=== PATIENT | male | born 1990 | race Caucasian/White ===

== ENCOUNTER 2016-06-06 06:43 | Day surgery (SDC) | payer OTHER ==
[~2016-06-06 06:43] MED LIST: Buffered Lidocaine 1% SYR 3ML* 3 ML/SYR SYRINGE INTRADERM ONE
[2016-06-06] MEDS ORDERED: Bupivacaine 0.5% SDV PF* 30 ML VIAL ONE (07:28)
[2016-06-06] MEDS ORDERED: Lidocain 1% EPI 1:100,000 * 30 ML MDV ONE (07:29)
[2016-06-06] MEDS ORDERED: Bupivacaine 0.5% W/EPI SDV* 30 ML VIAL ONE (07:29)
[2016-06-06] MEDS ORDERED: Lidocaine 1% INJ* 10 MG/ML 30 ML SDV ONE (07:30)
[2016-06-06] MEDS ORDERED: Silver Sulfadiazine 1%* 20 GM ONE (07:31)
[2016-06-06] MEDS ORDERED: Midazolam* 1 MG/ML 5 ML VIAL (5 MG) ONE (07:58)
[2016-06-06] MEDS ORDERED: fentaNYL* 50 MCG/ML 2 ML VIAL (100 MCG VIAL) ONE (07:58)
[2016-06-06] MEDS ORDERED: Propofol* 10 MG/ML 20 ML BTL IV PUSH ONE ×2 (08:36→08:37)
[2016-06-06 09:49] VITALS: BP 122/57
--- NOTE | 2016-06-07 03:39 | OP ---
DATE OF OPERATION: 06/06/16 [facility] DATE OF : 88 SURGEON: Meir Syed DPM ANESTHESIOLOGIST: Edie Pa MD ANESTHESIA: MAC, local. PRE-OP DIAGNOSIS: Right and left foot plantar warts. POST-OP DIAGNOSIS: Right and left foot plantar warts. OPERATIVE PROCEDURE: CO2 laser ablation and curettage of right and left foot plantar warts. ESTIMATED BLOOD LOSS: Less than 10 cc. IV FLUIDS: LR 1000 cc. DRAINS: None. SPECIMENS: Warts from the right and left foot. DESCRIPTION OF PROCEDURE: The patient was taken to the operating room and was placed in supine position. \A time-out was called, which the OR team agreed. The right and left feet were then blocked with 1% lidocaine with epinephrine in a 1:100,000 solution. The right foot was blocked with 1 cc and the left foot was blocked with 3 cc. The feet were prepped and draped in a sterile manner. The right and left foot was then exsanguinated with an Esmarch bandage and the cuff was then inflated to 250 mmHg. Attention was then paid to the right foot. There was a plantar wart approximately the size of 1.1 cm located just proximal to the submetatarsal 3. I proceeded to ablate the lesion with CO2 laser set at 4 schwartz in a continuous fashion. Once the lesion was ablated, I then used a combination of a #15 blade as well as a dermal curette to curettage the ablated tissue. Once it was determined that the skin line is in full view, the procedure was then deemed completed. The right foot was then placed in a dry sterile dressing and the cuff was then deflated. Attention was then paid to the left foot where there were 2 lesions, one just proximal to the submetatarsal 5 and one just distal to the styloid process of the fifth metatarsal. Again, I used a CO2 laser to ablate the skin lesion set at 4 schwartz in a continuous fashion. Once the ablation was completed, I then took a dermal curette and #15 blade to excise the ablated tissue. The sizes are 1.1 and 0.8 respectively. Once this was completed, the foot was placed in a dry sterile dressing. The cuff was then deflated. The patient tolerated the procedure well and was discharged in stable condition. I will have him come back to the office in 3 days. [id number]/[facility] #: [id number] MARY
== END 2016-06-06 09:43 | disposition home or self-care (01) ==
LOC: OREAST 06:43
PROVIDERS: ATTEND Podiatrist
DX: B07.0 Plantar wart (principal)
CPT/HCPCS: 88305; A9270-GY; J2250; J2704; J3010

== ENCOUNTER 2016-07-25 15:01 | Emergency (ER) | payer OTHER ==
[2016-07-25] MEDS ORDERED: cefTRIAXone VIAL(*) 1,000 MG VIAL IM ONE (16:48)
[2016-07-25] MEDS ORDERED: Lidocaine 1% MPF* 2 ML VIAL INJ ONE (16:52)
[2016-07-25 16:59] VITALS: BP 131/89
--- NOTE | 2016-07-25 17:01 | UC ---
Knee Pain HPI - HPI Summary HPI Summary: Spreading red area with swelling and increasing pain on R knee since last night. 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 - History of Current Complaint Chief Complaint: UCLowerExtremity Stated Complaint: KNEE PAIN,SWELLING Time Seen by Provider: 07/25/16 16:35 Hx Obtained From: Patient Onset/Duration: Gradual Onset, Lasting Hours Severity Initially: Mild Severity Currently: Moderate Character: Aching, Throbbing Aggravating Factor(s): Movement Alleviating Factor(s): Rest Associated Signs And Symptoms: Positive: Swelling, Redness. Negative: Fever, Weakness Able to Bear Weight: Yes - Allergies/Home Medications Allergies/Adverse Reactions: Allergies Allergy/AdvReac Type Severity Reaction Status Date / Time Hydrocodone Allergy Nausea And Verified 07/25/16 15:46 Vomiting PMH/Surg Hx/FS Hx/Imm Hx Endocrine History Of: Denies: Diabetes, Thyroid Disease Cardiovascular History Of: Denies: Cardiac Disorders, Hypertension Respiratory History Of: Denies: COPD, Asthma GI/ History Of: Denies: Ulcer Psychological History Of: Reports: Depression - DEPRESSION- EPISODE OF 7-8 YRS AGO - Surgical History Surgical History: Yes Surgery Procedure, Year, and Place: RIGHT ARM FX- AGE 7- "[place]". RIGHT KNEE ARTHROSCOPY, MCL REPAIR- 2012- [facility] – [place] - Family History Known Family History: Negative: Blood Disorder - Social History Occupation: Employed Full-time Alcohol Use: Weekly Alcohol Amount: 2 BEERS/NIGHT, SOCIALLY ON WEEKENDS Substance Use Type: None Smoking Status (MU): Never Smoked Tobacco Have You Smoked in the Last Year: No Review of Systems Constitutional: Negative Skin: Other - redness, swelling Eyes: Negative ENT: Negative Respiratory: Negative Cardiovascular: Negative Gastrointestinal: Negative Genitourinary: Negative Motor: Negative Neurovascular: Negative Musculoskeletal: Negative Neurological: Negative Psychological: Negative All Other Systems Reviewed And Are Negative: Yes Physical Exam Triage Information Reviewed: Yes Appearance: Well-Appearing, No Pain Distress, Well-Nourished Vital Signs: Initial Vital Signs Temp 98.3 F 07/25/16 15:41 Pulse 73 07/25/16 15:41 Pulse Ox 100 07/25/16 15:41 Vital Signs Reviewed: Yes Eye Exam: Normal Eyes: Positive: Conjunctiva Clear ENT Exam: Normal ENT: Positive: Normal ENT inspection, Hearing grossly normal, Pharynx normal, TMs normal Dental Exam: Normal Neck exam: Normal Neck: Positive: Supple, Nontender, No Lymphadenopathy Respiratory Exam: Normal Respiratory: Positive: Chest non-tender, Lungs clear, Normal breath sounds, No respiratory distress, No accessory muscle use Cardiovascular Exam: Normal Cardiovascular: Positive: RRR, No Murmur Musculoskeletal: Positive: ROM Intact, Edema @ - R anterior knee, swelling in R patellar bursa., Other: - Denies pain deep in R knee joint or posterior Neurological Exam: Normal Neurological: Positive: Alert Psychological Exam: Normal Skin Exam: Other - irreg red area on R anterior knee Knee Pain Course/Dx - Differential Dx/Diagnosis Provider Diagnoses: R knee cellulitis. R knee prepatellar bursitis Discharge - Discharge Plan Condition: Stable Disposition: HOME Prescriptions: Sulfamethox/Trimethoprim DS* [Bactrim DS 800/160 TAB*] 1 tab PO BID #10 tab Patient Education Materials: Cellulitis (ED), Knee Bursitis (ED) Referrals: Ryland Mtz MD [Primary Care Provider] - Additional Instructions: It appears that you have an infection in your knee. Though you have some swelling in the front, it does not look like you have infection in the joint at this time. Your labwork is pending. If you develop fever over 100F, severe pain in the knee, or marked increase in redness, please go to the emergency department right away. Come back here in 2 days for a recheck if you do not have total or near-total improvement.
[2016-07-26 15:32] LABS: Hematocrit 44 % (42-52); Hemoglobin 14.6 g/dl (14.0-18.0); Mean Corpuscular HGB Conc 33 g/dl (31-36); Mean Corpuscular Hemoglobin 30 pg (27-31); Mean Corpuscular Volume 91 fL (80-94); Mean Platelet Volume 10 um3 (7.4-10.4); Red Blood Count 4.84 10^6/ul (4.0-5.4); Red Cell Distribution Width 13 % (10.5-15); White Blood Count 13.7 10^3/ul (3.5-10.8)
[2016-07-26 15:34] LABS: Add Diff/Slide Review? Slide Review Added; Comments Flag Yes
== END 2016-07-25 17:12 | disposition home or self-care (01) ==
LOC: UCEAST 15:01
DX: L03.115 Cellulitis of right lower limb (principal); M70.41 Prepatellar bursitis, right knee; Y93.9 Activity, unspecified; Z88.5 Allergy status to narcotic agent
CPT/HCPCS: 36415; 85025; 86140; 96372; 99212; G0463; J0696

== ENCOUNTER 2017-07-15 15:45 | Emergency (ER) | payer OTHER ==
[2017-07-15] MEDS ORDERED: Ketorolac INJ* 60 MG/2 ML VIAL IM ONE (16:43)
--- NOTE | 2017-07-15 17:36 | RAD ---
INDICATION: Cough. COMPARISON: There are no prior studies available for comparison. TECHNIQUE: Dual-energy PA and lateral views of the chest were obtained. FINDINGS: The heart is within normal limits in size. Mediastinal and hilar contours appear within normal limits. The lungs are clear. No pleural effusion is present. IMPRESSION: NO EVIDENCE FOR ACTIVE CARDIOPULMONARY DISEASE.
--- NOTE | 2017-07-15 17:47 | ED ---
Complex/Multi-Sys Presentation - HPI Summary HPI Summary: Patient is a 26-year-old male who presents emergency Department initially complaining of low back pain that started early this morning. Patient then notes that he has had full body aches today and also noticed discomfort in the center of his chest with deep inspiration and a mild cough. He has no past medical history. Denies smoking. Pain is worse with movement. 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 He has not taken any analgesics today. Denies sick contacts. Denies illicit drug use. He denies numbness, tingling or weakness to legs. Denies bowel or bladder incontinence or retention. Symptoms are mild in severity. - History Of Current Complaint Chief Complaint: EDBackInjuryPain Time Seen by Provider: 07/15/17 16:03 Hx Obtained From: Patient - Allergies/Home Medications Allergies/Adverse Reactions: Allergies Allergy/AdvReac Type Severity Reaction Status Date / Time MS Hydrocodone [Hydrocodone] Allergy Nausea And Verified 07/25/16 15:46 Vomiting PMH/Surg Hx/FS Hx/Imm Hx Previously Healthy: Yes Endocrine/Hematology History: Denies: Hx Diabetes, Hx Thyroid Disease Cardiovascular History: Denies: Hx Hypertension Respiratory History: Denies: Hx Asthma, Hx Chronic Obstructive Pulmonary Disease (COPD) GI History: Denies: Hx Ulcer Musculoskeletal History: Reports: Other Musculoskeletal History - HX OF FX RIGHT ARM, RIGHT KNEE ARTHROSCOPY, MCL REPAIR Sensory History: Denies: Hx Contacts or Glasses, Hx Hearing Aid Opthamlomology History: Denies: Hx Contacts or Glasses Psychiatric History: Reports: Hx Depression - DEPRESSION- EPISODE OF 7-8 YRS AGO - Surgical History Surgery Procedure, Year, and Place: RIGHT ARM FX- AGE 7- "[place]". RIGHT KNEE ARTHROSCOPY, MCL REPAIR- 2012- [facility] – [place] Hx Anesthesia Reactions: No Infectious Disease History: No Infectious Disease History: Denies: Hx Hepatitis, Hx Human Immunodeficiency Virus (HIV), History Other Infectious Disease, Traveled Outside the [place] in Last 30 Days - Family History Known Family History: Negative: Blood Disorder - Social History Occupation: Employed Full-time Lives: Alone Alcohol Use: Weekly Alcohol Amount: 2 BEERS/NIGHT, SOCIALLY ON WEEKENDS Substance Use Type: Reports: None Smoking Status (MU): Never Smoked Tobacco Have You Smoked in the Last Year: No Review of Systems Positive: Fever, Chills Eyes: Negative ENT: Negative Positive: Chest Pain Positive: Shortness Of Breath, Cough Gastrointestinal: Negative Negative: Abdominal Pain, Vomiting, Diarrhea Positive: Myalgia Skin: Negative Positive: Headache All Other Systems Reviewed And Are Negative: Yes Physical Exam Triage Information Reviewed: Yes Vital Signs On Initial Exam: Initial Vitals Temp Pulse Resp BP Pulse Ox 100.2 F 86 18 156/98 99 07/15/17 15:47 07/15/17 15:47 07/15/17 15:47 07/15/17 15:47 07/15/17 15:47 Vital Signs Reviewed: Yes Appearance: Positive: Well-Appearing - Patient sitting up in bed in no acute distress. Skin: Positive: Warm, Dry - Hot to touch. Head/Face: Positive: Normal Head/Face Inspection Eyes: Positive: Normal Neck: Positive: Supple, Nontender Respiratory/Lung Sounds: Positive: Clear to Auscultation, Breath Sounds Present Cardiovascular: Positive: Normal, RRR Musculoskeletal: Positive: Other - Tenderness to the lumbar spine and pain over bilateral SI joints. 5 out of 5 strength in bilateral lower extremities in flexion and dorsiflexion and great toes. No neurosensory deficit. Negative straight leg tests bilaterally. No CVA tenderness bilaterally. Neurological: Positive: Normal, CN Intact II-III Psychiatric: Positive: Normal Diagnostics - Vital Signs Vital Signs Temp Pulse Resp BP Pulse Ox 07/15/17 15:47 100.2 F 86 18 156/98 99 - Laboratory Lab Statement: Any lab studies that have been ordered have been reviewed, and results considered in the medical decision making process. Complex Multi-Symp Course/Dx Course Of Treatment: Patient presenting to the ER with complaints of cough, chest discomfort with coughing, low back pain and myalgias. He does have a low- grade fever of 100.2F. Heart rate is 86 beats or minute. Oxygen saturation is 99% room air which is normal. WIll obtain chest x-ray, flu swab. Patient was given IM Toradol for discomfort and fever. Negative flu. Chest xray negative for acute findings per myself and radiology. On re-exam pt. is feeling mildly better after toradol. Case was discussed with Dr. Guillermo. Concerned with midline back pain and fever. Will check labs and urine. DDX: viral syndrome, UTI , pyelo, epidural abscess. Pt. will be signed out to Sharmin Jones PA-C for labs results and appropriate treatment and disposition. - Diagnoses Provider Diagnoses: Back pain, Fever Discharge - Sign-Out/Discharge Documenting (check all that apply): Sign-Out Patient Signing out patient TO: Sharmin Jones - Discharge Plan Referrals: Ryland Mtz MD [Primary Care Provider] -
--- NOTE | 2017-07-15 18:50 | PN ---
Progress Note - Progress Note Date of Service: 07/15/17 Note: 26 male patient signed out by Marvin MEHTA pending lab results at shift change. Patient was having low back pain, fever, cough, chest pain with inspiration, bodyaches. Lab results were obtained results showing elevated white blood cell count at 20.7 with left shift. Patient was febrile. Urinalysis also obtained and negative. Influenza was already obtained and negative. Due to patient's low back pain with midline tenderness, lab results, normal urine, an MRI of the thoracic or lumbar spine was obtained. IMPRESSION:1. NO EVIDENCE FOR DISCITIS OR OSTEOMYELITIS. 2. MILD DEGENERATIVE DISC DISEASE. 3. MULTIPLE BILATERAL RENAL CYSTS. mild badging disc lumbar spine Blood cultures were also obtained due to patient's white blood cell count elevation and symptoms, pending results. Urine will be cultured as well. 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 MRIs were both negative for any epidural abscess of concern. Due to patient's white count symptoms CT chest was obtained. Chest x-ray was read as negative however suspicion for pneumonia. CT showed left lobe pneumonia with some on the right as well. To white count and patient's symptoms with findings on CT we'll treat with Levaquin [address] Alarcon also read CT. radiologist impression: There are platelike atelectacic changes at the lung bases but no pulmonary infiltrates are identified. No pleural effusion. No pericardial effusion. No pneumothorax or pneumomediastinum. A few shotty mediastinal lymph nodes. Osseous structures are intact. Patient agree and understand plan. Given Levaquin 7 days. Decongestants over- the-counter, saltwater gargles and ibuprofen/Tylenol for fever and discomfort. Aware worsening signs or symptoms watch out for. Follow-up with PCP for recheck within 2 days. Diagnosis: pneumonia Discharge Condition stable Disposition home
[2017-07-15 18:58] LABS: ABS Basophils 0 10^3/ul (0-0.2); ABS Eosinophils 0 10^3/ul (0-0.6); ABS Lymphocytes 1.7 10^3/ul (1.0-4.8); ABS Monocytes 0.8 10^3/ul (0-0.8); ABS Neutrophils 18.1 10^3/ul (1.5-7.7); ABS Nucleated RBC 0 10^3/ul; Eosinophil % 0.2 % (0-6); Hematocrit 42 % (42-52); Hemoglobin 14.1 g/dl (14.0-18.0); Lymphocyte % 8.3 % (25-47); Mean Corpuscular HGB Conc 34 g/dl (31-36); Mean Corpuscular Hemoglobin 30 pg (27-31); Mean Corpuscular Volume 91 fL (80-94); Mean Platelet Volume 8.4 um3 (7.4-10.4); Nucleated Red Blood Cells % 0; Platelet Count 300 10^3/ul (150-450); Red Blood Count 4.63 10^6/ul (4.0-5.4); Red Cell Distribution Width 13 % (10.5-15); White Blood Count 20.7 10^3/ul (3.5-10.8)
[2017-07-15 19:16] LABS: EGFR Non-African American 99.9 (>60)
[2017-07-15 20:03] LABS: Urine Appearance Clear; Urine Blood Negative (Negative); Urine Color Straw; Urine Ketones Trace (Negative); Urine Protein Negative (Negative); Urine Specific Gravity 1.008 (1.010-1.030); Urine Urobilinogen Negative (Negative)
[2017-07-15] MEDS ORDERED: Gadoteridol* (CONTRAST) 279.3 MG/ML 10 ML IV ONE (21:48)
--- NOTE | 2017-07-15 22:10 | RAD ---
INDICATION: Neck pain fever evaluate for infection, abscess. COMPARISON: There are no prior studies available for comparison. TECHNIQUE: Axial and sagittal T1 and T2-weighted images of the dorsal spine were obtained. In addition, axial and sagittal T1-weighted images were obtained following intravenous injection of 16 ml of ProHance nonionic contrast enhancement. FINDINGS: The vertebra are in normal alignment and signal intensity. No bone marrow edema or vertebral endplate erosive changes are seen. No disc edema is present. No paravertebral soft tissue swelling is present. No abnormal enhancement is seen. The spinal cord is normal in shape and signal intensity. At the T7-T8 level there is a mild central disc protrusion. No significant spinal canal or neural foraminal narrowing is seen. No other significant disc abnormalities are seen. The spinal canal appears patent at all levels. Neural foramen appear patent bilaterally at all levels. There are multiple bilateral renal cysts. IMPRESSION: 1. NO EVIDENCE FOR DISCITIS OR OSTEOMYELITIS. 2. MILD DEGENERATIVE DISC DISEASE. 3. MULTIPLE BILATERAL RENAL CYSTS.
--- NOTE | 2017-07-15 22:24 | RAD ---
INDICATION: Fever and back pain evaluate for abscess. COMPARISON: There are no prior studies available for comparison. TECHNIQUE: Axial and sagittal T1 and T2 and coronal T2-weighted images of the lumbar spine were obtained. In addition axial and sagittal T1-weighted images were obtained following intravenous injection of 16 ml of ProHance nonionic contrast. FINDINGS: The vertebra are in normal alignment. No bone marrow edema or vertebral endplate erosive changes are seen. No fracture is noted. No abnormal enhancement is seen. At the L3-L4 level there is a very mild broad-based disc bulge and mild hypertrophic changes within the facet joints. No significant spinal canal or neural foraminal narrowing is seen. At the L4-L5 level there is a minimal broad-based disc bulge and mild hypertrophic changes within the facet joints. No significant spinal canal or neural foraminal narrowing is seen. At the L5-S1 level there is a mild broad-based disc bulge. There are mild hypertrophic changes within the facet joints. No spinal canal or neural foraminal narrowing is seen. There are multiple bilateral renal cysts which are partially visualized on this study. IMPRESSION: 1. NO EVIDENCE FOR DISCITIS OR OSTEOMYELITIS. 2. MILD LUMBAR SPONDYLOSIS. 3. MULTIPLE BILATERAL RENAL CYSTS.
[2017-07-15] MEDS ORDERED: Acetaminophen TAB* 325 MG PO ONE (22:39)
[2017-07-16] MEDS ORDERED: Levofloxacin TAB* 250 MG PO ONE (00:02)
[2017-07-16 01:25] VITALS: BP 131/70
--- NOTE | 2017-07-16 09:14 | RAD ---
Indication: Evaluate for pneumonia. CT of the chest performed without IV contrast. Inferior thyroid lobes are unremarkable. There are small pretracheal lymph nodes noted measuring up to 8 mm. Precarinal lymph nodes measure up to 7 mm. No hilar adenopathy is noted. The heart demonstrates no pericardial effusion. The trachea and major bronchi appear patent. Lung bethea demonstrate some atelectasis in the lung bases bilaterally, worse on the left than on the right. No pleural fluid is identified. The bony structures are grossly unremarkable. IMPRESSION: Bibasilar atelectasis in the lung bases. No definite pneumonia is noted. Small mediastinal lymph nodes of uncertain clinical significance.
== END 2017-07-16 01:22 | disposition home or self-care (01) ==
LOC: ED 15:45
DX: M54.5 Low back pain (principal); R50.9 Fever, unspecified; R51 Headache; R07.9 Chest pain, unspecified; R06.02 Shortness of breath; R05 Cough; J18.9 Pneumonia, unspecified organism; M51.34 Other intervertebral disc degeneration, thoracic region; M47.896 Other spondylosis, lumbar region
CPT/HCPCS: 36415; 71046; 71250; 72157; 72158; 80053; 81003; 85025; 86141; 87040; 87502; 96372; 99282; A9270-GY; A9579; J1885

== ENCOUNTER 2018-09-27 15:40 | Emergency (ER) | payer OTHER ==
[2018-09-27] MEDS ORDERED: Rabies VIRUS VACCINE (Imovax)* 2.5 UNIT/ML 1 ML IM ONE (15:43)
[2018-09-27] MEDS ORDERED: Tetan/Diph/Pertus SYR(Tdap)* 0.5 ML SYR(BOOSTRIX) use SYR IM ONE (15:43)
--- NOTE | 2018-09-27 15:43 | UC ---
Bite Injury/Animal HPI - HPI Summary HPI Summary: 28 yo male presents with bat exposure. He tells me that 1 week ago he noticed a bat hanging from his curtain at home and removed it with a papertowel. Thinks the bat scratched him once or twice, but does not think he was bitten. Pt states his last tetanus was within the last 5 years. He called the health department and they recommended he undergo rabies vaccination. He has no symptoms at this time. 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 - History of Current Complaint Stated Complaint: BAT EXPOSURE Time Seen by Provider: 09/27/18 15:42 Hx Obtained From: Patient Severity Currently: None Character: Puncture - Allergies/Home Medications Allergies/Adverse Reactions: Allergies Allergy/AdvReac Type Severity Reaction Status Date / Time hydrocodone Allergy Nausea And Verified 09/27/18 15:54 Vomiting Home Medications: Home Medications NK [No Home Medications Reported] 09/27/18 [History Confirmed 09/27/18] PMH/Surg Hx/FS Hx/Imm Hx - Additional Past Medical History Additional PMH: none Psychological History: Anxiety - Surgical History Surgical History: Yes Surgery Procedure, Year, and Place: RIGHT ARM FX- AGE 7- "[place]". RIGHT KNEE ARTHROSCOPY, MCL REPAIR- 2012- [facility] [place] - Family History Known Family History: Positive: None Negative: Blood Disorder - Social History Lives: With Family Alcohol Use: Weekly Alcohol Amount: 2 BEERS/NIGHT, SOCIALLY ON WEEKENDS Substance Use Type: None Smoking Status (MU): Never Smoked Tobacco Have You Smoked in the Last Year: No Review of Systems All Other Systems Reviewed And Are Negative: Yes Constitutional: Positive: Other - Bat exposure Skin: Positive: Negative Respiratory: Positive: Negative Cardiovascular: Positive: Negative Neurovascular: Positive: Negative Neurological: Positive: Negative Psychological: Positive: Negative Physical Exam - Summary Physical Exam Summary: GENERAL: NAD. WDWN. No pain distress. SKIN: RIGHT HAND: index finger dorsal aspect with 2mm puncture wound healed. ring finger dorsal aspect with 2mm puncture wound healed. NECK: Supple. Nontender. No lymphadenopathy. CHEST: No accessory muscle use. Breathing comfortably and in no distress. CV: Pulses intact. Cap refill <2seconds NEURO: Alert. PSYCH: Age appropriate behavior. Triage Information Reviewed: Yes Vital Signs: Vital Signs: Temp Pulse Resp BP Pulse Ox 99.0 F 64 18 148/95 98 09/27/18 15:55 09/27/18 15:55 09/27/18 15:55 09/27/18 15:55 09/27/18 15:55 Vital Signs Reviewed: Yes Bite Injury Course/Dx - Course Course Of Treatment: Rabies vaccination given. RIG given according to guidelines. No need for antibiotics at this time. Advised to f/u with the health department for further treatment. - Differential Dx/Diagnosis Provider Diagnosis: Contact with and suspected exposure to rabies Discharge - Sign-Out/Discharge Documenting (check all that apply): Patient Departure All imaging exams completed and their final reports reviewed: No Studies - Discharge Plan Condition: Stable Disposition: HOME Patient Education Materials: Rabies Vaccine (By injection), Rabies Immune Globulin (By injection), Rabies (ED) Referrals: Ryland Mtz MD [Primary Care Provider] - Additional Instructions: If you develop a fever, shortness of breath, chest pain, new or worsening symptoms - please call your PCP or go to the ED immediately. Your blood pressure was high at todays visit. Please see your primary provider within 4 weeks for recheck and re-evaluation. - Billing Disposition and Condition Condition: STABLE Disposition: Home
[2018-09-27 15:57] VITALS: BP 148/95
[2018-09-27] MEDS ORDERED: Rabies Immune Globulin/PF 1ML* 1 ML/300 UNITS VIAL IM ONE (15:58)
== END 2018-09-27 16:35 | disposition home or self-care (01) ==
LOC: UCEAST 15:40
DX: Z20.3 Contact with and (suspected) exposure to rabies (principal); Z88.5 Allergy status to narcotic agent
CPT/HCPCS: 90375; 90471; 96372; 99211; G0463

== ENCOUNTER 2018-09-30 07:02 | Emergency (ER) | payer OTHER ==
[2018-09-30 07:08] VITALS: BP 134/98
[2018-09-30] MEDS ORDERED: Rabies VIRUS VACCINE (Imovax)* 2.5 UNIT/ML 1 ML IM ONE (07:13)
--- NOTE | 2018-09-30 07:14 | UC ---
Bite Injury/Animal HPI - HPI Summary HPI Summary: 28 yo gentleman presents as advise by Health Dept for Rabies vaccine #2. Received RIG and Rabies vaccine #1 on 09/27/18. Notes from 09/27 visit not yet complete, pt denie any problems with vaccine / rig effects. No fever / chills. No GI issues. No sob / cp / palpitations. No rash. Saw a bat, and touched it a couple days ago. Doesn't recall bite perse, but may have had a scratch. Tet utd. Fam hx noncont - History of Current Complaint Chief Complaint: UCGeneralIllness Stated Complaint: RABIES POST EXPOSURE Time Seen by Provider: 09/30/18 07:12 Hx Obtained From: Patient Pain Intensity: 0 - Allergies/Home Medications Allergies/Adverse Reactions: Allergies Allergy/AdvReac Type Severity Reaction Status Date / Time hydrocodone Allergy Nausea And Verified 09/30/18 07:09 Vomiting PMH/Surg Hx/FS Hx/Imm Hx Previously Healthy: Yes - Surgical History Surgical History: Yes Surgery Procedure, Year, and Place: RIGHT ARM FX- AGE 7- "[place]". RIGHT KNEE ARTHROSCOPY, MCL REPAIR- 2012- [facility] – [place] - Family History Known Family History: Positive: None Negative: Blood Disorder - Social History Alcohol Use: Weekly Alcohol Amount: 2 BEERS/NIGHT, SOCIALLY ON WEEKENDS Substance Use Type: None Smoking Status (MU): Never Smoked Tobacco Have You Smoked in the Last Year: No - Immunization History Most Recent Tetanus Shot: within 5 years Review of Systems All Other Systems Reviewed And Are Negative: Yes Constitutional: Positive: Negative Skin: Positive: Negative Eyes: Positive: Negative ENT: Positive: Negative Respiratory: Positive: Negative Cardiovascular: Positive: Negative Gastrointestinal: Positive: Negative Genitourinary: Positive: Negative Motor: Positive: Negative Neurovascular: Positive: Negative Musculoskeletal: Positive: Negative Neurological: Positive: Negative Psychological: Positive: Negative Is Patient Immunocompromised?: No Physical Exam Triage Information Reviewed: Yes Appearance: Well-Appearing, Well-Nourished Vital Signs: Initial Vital Signs Temp 98 F 09/30/18 07:06 Pulse 71 09/30/18 07:06 Resp 17 09/30/18 07:06 BP 134/98 09/30/18 07:06 Pulse Ox 99 09/30/18 07:06 Vital Signs Reviewed: Yes Eye Exam: Normal ENT Exam: Normal Neck exam: Normal Neck: Positive: Supple Respiratory Exam: Normal Cardiovascular Exam: Normal Abdominal Exam: Normal Musculoskeletal Exam: Normal Neurological Exam: Normal Psychological Exam: Normal Skin Exam: Normal - no infection / cellulitis Bite Injury Course/Dx - Course Course Of Treatment: Rabies vaccine x 1. Questions as posed answered to the best of my ability F/u per Health Dept fu PCP, per routine. Note - in [email or web address], there is no listing for "possible rabies exposure", as such , closest pertinent dx is as below "Rabies exposure." - Differential Dx/Diagnosis Provider Diagnosis: Rabies contact Discharge - Sign-Out/Discharge Documenting (check all that apply): Patient Departure All imaging exams completed and their final reports reviewed: No Studies - Discharge Plan Condition: Stable Disposition: HOME Patient Education Materials: Rabies Vaccine (By injection) Referrals: Ryland Mtz MD [Primary Care Provider] - Additional Instructions: Follow up per the Health Department for the remainder of the series. Go to the Emergency Department for any worse or new problems. - Billing Disposition and Condition Condition: STABLE Disposition: Home
== END 2018-09-30 07:30 | disposition home or self-care (01) ==
LOC: UCEAST 07:02
DX: Z20.3 Contact with and (suspected) exposure to rabies (principal); Z29.14 Encounter for prophylactic rabies immune globulin
CPT/HCPCS: 90471; 99211; G0463

== ENCOUNTER 2019-05-14 16:45 | Emergency (ER) | payer OTHER ==
[2019-05-14] MEDS ORDERED: NS 0.9% 1000 ML** 1,000 ML IV ONE (16:51)
[2019-05-14] MEDS ORDERED: Ondansetron INJ* 2 MG/ML VIAL IV ONE (16:51)
[2019-05-14] MEDS ORDERED: LORazepam TAB(*) 1 MG PO ONE (17:00)
--- NOTE | 2019-05-14 17:08 | ED ---
Psychiatric Complaint - HPI Summary HPI Summary: This patient is a 28 year old [place] [facility] [place] with a chief complaint of anxiety since this morning 05/14/19. Pt states he drank alcohol last night which caused a slight hangover this morning. He states earlier he became anxious, was hyperventilating, and his hands and arms started to become numb, he experienced tunnel vision, diaphoresis, nausea, and lightheadedness. Currently reports anxiety, for which he took 0.5mg Klonopin this morning without alleviation. Denies CP, SOB. No SI HI. - History Of Current Complaint Chief Complaint: EDNauseaVomitDiarrh Time Seen by Provider: 05/14/19 16:50 Hx Obtained From: Patient Onset/Duration: Gradual Onset, Lasting Hours, Still Present Timing: Constant Severity Initially: Moderate Severity Currently: Moderate Character: Anxious Aggravating Factor(s): Nothing Alleviating Factor(s): Nothing Associated Signs And Symptoms: Positive: Negative - Allergies/Home Medications Allergies/Adverse Reactions: Allergies Allergy/AdvReac Type Severity Reaction Status Date / Time hydrocodone Allergy Nausea And Verified 05/14/19 16:48 Vomiting PMH/Surg Hx/FS Hx/Imm Hx Previously Healthy: Yes Endocrine/Hematology History: Denies: Hx Diabetes, Hx Thyroid Disease Cardiovascular History: Denies: Hx Hypertension, Hx Pacemaker/ICD Respiratory History: Denies: Hx Asthma, Hx Chronic Obstructive Pulmonary Disease (COPD) GI History: Denies: Hx Ulcer Musculoskeletal History: Reports: Other Musculoskeletal History - HX OF FX RIGHT ARM, RIGHT KNEE ARTHROSCOPY, MCL REPAIR Sensory History: Denies: Hx Contacts or Glasses, Hx Hearing Aid Opthamlomology History: Denies: Hx Contacts or Glasses Psychiatric History: Reports: Hx Anxiety, Hx Depression - DEPRESSION- EPISODE OF 7-8 YRS AGO Denies: Hx Panic Disorder - Surgical History Surgery Procedure, Year, and Place: RIGHT ARM FX- AGE 7- "[facility]". RIGHT KNEE ARTHROSCOPY, MCL REPA[place] [facility] [place] Anesthesia Reactions: No Infectious Disease History: No Infectious Disease History: Denies: Hx Hepatitis, Hx Human Immunodeficiency Virus (HIV), History Other Infectious Disease, Traveled Outside the [place] in Last 30 Days - Family History Known Family History: Negative: Blood Disorder - Social History Alcohol Use: Weekly Alcohol Amount: 2 BEERS/NIGHT, SOCIALLY ON WEEKENDS Hx Substance Use: No Substance Use Type: Reports: None Hx Tobacco Use: No Smoking Status (MU): Never Smoked Tobacco Have You Smoked in the Last Year: No Review of Systems Positive: Skin Diaphoresis Positive: Other - tunnel vision Positive: Nausea Neurological/Mental Status: Other - lightheadedness Positive: Numbness Positive: Anxious All Other Systems Reviewed And Are Negative: Yes Physical Exam - Summary Physical Exam Summary: Constitutional: Well-developed, Well-nourished, Alert. (-) Distressed Skin: Warm, Dry HENT: Normocephalic; Atraumatic Eyes: Conjunctiva normal Neck: Musculoskeletal ROM normal neck. (-) JVD, (-) Stridor, (-) Nuchal rigidity Cardio: Rhythm regular, rate normal, Heart sounds normal; Intact distal pulses; Radial pulses are 2+ and symmetric. (-) Murmur Pulmonary/Chest wall: Effort normal. (-) Respiratory distress, (-) Wheezes, (-) Rales Abd: Soft, (-) tenderness, (-) Distension, (-) Guarding, (-) Rebound Musculoskeletal: (-) Edema Lymph: (-) Cervical adenopathy Neuro: Alert, Oriented x3 Psych: anxious Triage Information Reviewed: Yes Vital Signs On Initial Exam: Initial Vitals Temp Pulse Resp BP Pulse Ox 96.5 F 82 19 160/106 100 05/14/19 16:46 05/14/19 16:46 05/14/19 16:46 05/14/19 16:46 05/14/19 16:46 Vital Signs Reviewed: Yes Procedures - Sedation Patient Received Moderate/Deep Sedation with Procedure: No Diagnostics - Vital Signs Vital Signs Temp Pulse Resp BP Pulse Ox 05/14/19 16:46 96.5 F 82 19 160/106 100 - Laboratory Result Diagrams: 05/14/19 17:02 05/14/19 17:02 Lab Statement: Any lab studies that have been ordered have been reviewed, and results considered in the medical decision making process. - EKG 1728 Cardiac Rate: NL - 73 BPM EKG Rhythm: Sinus Rhythm ST Segment: Other Ectopy: None Summary of EKG Findings: An EKG taken at 1728 reveals sinus rhythm at 73 BPM and T-wave inversions in V1. ED physician has reviewed and interpreted this EKG. Course/Dx - Course Course Of Treatment: 28 y/o male p/w anxiety, lightheadedness. - VSS NAD, appears anxious. Given 1 mg ativan PO for anxiety. Labs w hypokalemia, repleted. EKG sinus. Got IVF and zofran, feeling much better. - Differential Dx/Clinical Impression Provider Diagnosis: Anxiety, Hypokalemia Discharge ED - Sign-Out/Discharge Documenting (check all that apply): Patient Departure - Discharge Plan Condition: Stable Disposition: HOME Patient Education Materials: Anxiety (ED) Referrals: Ryland Mtz MD [Primary Care Provider] - 3 Days Additional Instructions: You were seen in the emergency department for anxiety. Your labs showed a mildly low potassium which we gave you in the ER. Please do not drink and drive. Please follow up with psychiatrist, return to ER thoughts of wanting to hurt yourself or anybody else. Please follow up with your primary care doctor in next 2-3 days and return to emergency department for worsening or concerning symptoms. It was a pleasure taking care of you today. - Billing Disposition and Condition Condition: STABLE Disposition: Home - Attestation Statements Document Initiated by Cristian: Yes Documenting Scribe: Ginna Larry Provider For Whom Cristian is Documenting (Include Credential): Dr. Karolina Lynch MD Scribe Attestation: I, Ginna Larry, scribed for Dr. Karolina Lynch MD on 05/14/19 at 2049. Scribe Documentation Reviewed: Yes Provider Attestation: The documentation as recorded by the Ginna benavidez accurately reflects the service I personally performed and the decisions made by me, Dr. Karolina Lynch MD Status of Scribe Document: Viewed
[2019-05-14 17:09] LABS: ABS Basophils 0.1 10^3/ul (0-0.2); ABS Lymphocytes 1.2 10^3/ul (1.0-4.8); ABS Monocytes 0.7 10^3/ul (0-0.8); ABS Neutrophils 6.1 10^3/ul (1.5-7.7); Eosinophil % 0.6 %; Hematocrit 44 % (42-52); Hemoglobin 15.4 g/dL (14.0-18.0); Lymphocyte % 14.9 %; Mean Corpuscular HGB Conc 35 g/dL (31-36); Mean Corpuscular Hemoglobin 32 pg (27-31); Mean Corpuscular Volume 91 fL (80-94); Mean Platelet Volume 7.8 fL (7.4-10.4); Platelet Count 319 10^3/uL (150-450); Red Blood Count 4.78 10^6 /uL (4.18-5.48); Red Cell Distribution Width 13 % (10-15); White Blood Count 8.2 10^3/uL (3.5-10.8)
[2019-05-14 17:20] LABS: Albumin 4.7 g/dL (3.2-5.2); Calcium 9.2 mg/dL (8.6-10.3); Potassium 3.1 mmol/L (3.5-5.0); Total Bilirubin 0.3 mg/dL (0.2-1.0)
[2019-05-14 17:26] LABS: Albumin/Globulin Ratio 1.5 (1-3); BUN/Creatinine Ratio 11.4 (8-20); EGFR African American 123.9 (>60); EGFR Non-African American 102.4 (>60); Globulin 3.1 g/dL (2-4); Total Protein 7.8 g/dL (6.4-8.9)
[2019-05-14] MEDS ORDERED: Potassium EFFERVESCENT TAB* 25 MEQ TAB.EFF PO ONE (17:34)
[2019-05-14] MEDS ORDERED: Potassium Chlor TAB* 20 MEQ TAB.ER PO ONE (18:00)
[2019-05-14 18:23] VITALS: BP 146/98
== END 2019-05-14 18:22 | disposition home or self-care (01) ==
LOC: ED 16:45
DX: F41.9 Anxiety disorder, unspecified (principal); E87.6 Hypokalemia; Z88.5 Allergy status to narcotic agent
CPT/HCPCS: 36415; 80053; 80320; 85025; 93005; 96361; 96374; 99282; A9270-GY; G0480; J2405

== ENCOUNTER 2019-05-16 11:39 | Emergency (ER) | payer OTHER ==
[2019-05-16] MEDS ORDERED: Ondansetron ODT TAB* 4 MG PO ONE (12:53)
--- NOTE | 2019-05-16 13:09 | ED ---
GI/ HPI - HPI Summary HPI Summary: 28 year old M presenting to [facility] alone complains of nausea, vomiting, and loose diarrhea since this morning 05/16/2019. He also reports hand and leg numbness possibly due to anxiety. Patient reports coming to [facility] 05/14/2019 for anxiety/panic attack. He denies fever and sore throat. Patient states his family was sick from a stomach bug over the weekend. The patient rates the pain 0/10 in severity. Symptoms aggravated by nothing. Symptoms alleviated by nothing. - History of Current Complaint Chief Complaint: EDNauseaVomitDiarrh Time Seen by Provider: 05/16/19 12:33 Stated Complaint: FLU SYMPTOMS PER PT Hx Obtained From: Patient Onset/Duration: Started Hours Ago, Still Present Pain Intensity: 0 Associated Signs and Symptoms: Positive: Nausea, Vomiting, Diarrhea - loose, Other: - negative - sore throat. Negative: Fever Aggravating Factor(s): Nothing Alleviating Factor(s): Nothing - Allergy/Home Medications Allergies/Adverse Reactions: Allergies Allergy/AdvReac Type Severity Reaction Status Date / Time hydrocodone Allergy Nausea And Verified 05/16/19 11:45 Vomiting PMH/Surg Hx/FS Hx/Imm Hx Endocrine/Hematology History: Denies: Hx Diabetes, Hx Thyroid Disease Cardiovascular History: Denies: Hx Hypertension, Hx Pacemaker/ICD Respiratory History: Denies: Hx Asthma, Hx Chronic Obstructive Pulmonary Disease (COPD) GI History: Denies: Hx Ulcer Musculoskeletal History: Reports: Other Musculoskeletal History - HX OF FX RIGHT ARM, RIGHT KNEE ARTHROSCOPY, MCL REPAIR Sensory History: Denies: Hx Contacts or Glasses, Hx Hearing Aid Opthamlomology History: Denies: Hx Contacts or Glasses Psychiatric History: Reports: Hx Anxiety, Hx Depression - DEPRESSION- EPISODE OF 7-8 YRS AGO Denies: Hx Panic Disorder - Surgical History Surgery Procedure, Year, and Place: RIGHT ARM FX- AGE 7- "[facility]". RIGHT KNEE ARTHROSCOPY, MCL REPAIR- [place]- [facility] [place] Hx Anesthesia Reactions: No Infectious Disease History: No Infectious Disease History: Denies: Hx Hepatitis, Hx Human Immunodeficiency Virus (HIV), History Other Infectious Disease, Traveled Outside the [place] in Last 30 Days - Family History Known Family History: Negative: Blood Disorder - Social History Alcohol Use: Weekly Alcohol Amount: 2 BEERS/NIGHT, SOCIALLY ON WEEKENDS Hx Substance Use: No Substance Use Type: Reports: None Hx Tobacco Use: No Smoking Status (MU): Never Smoked Tobacco Have You Smoked in the Last Year: No Review of Systems Negative: Fever Negative: Sore Throat Positive: Vomiting, Diarrhea - loose, Nausea Positive: Other - arm and leg numbness possibly due to anxiety All Other Systems Reviewed And Are Negative: Yes Physical Exam - Summary Physical Exam Summary: Appearance: The patient is well-nourished in no acute distress and in no acute pain. Skin: The skin is warm and dry, and skin color reflects adequate perfusion. HEENT: The head is normocephalic and atraumatic. The pupils are equal and reactive. The conjunctivae are clear and without drainage. Nares are patent and without drainage. Mouth reveals moist mucous membranes, and the throat is without erythema and exudate. The external ears are intact. The ear canals are patent and without drainage. The tympanic membranes are intact. Neck: The neck is supple with full range of motion and non-tender. There are no carotid bruits. There is no neck vein distension. Respiratory: Chest is non-tender. Lungs are clear to auscultation and breath sounds are symmetrical and equal. Cardiovascular: Heart is regular rate and rhythm. There is no murmur or rub auscultated. There is no peripheral edema and pulses are symmetrical and equal. Abdomen: The abdomen is soft and non-tender. There are normal bowel sounds heard in all four quadrants and there is no organomegaly palpated. Musculoskeletal: There is no back tenderness noted. Extremities are non-tender with full range of motion. There is good capillary refill. There is no peripheral edema or calf tenderness elicited. Neurological: Patient is alert and oriented to person, place and time. The patient has symmetrical motor strength in all four extremities. Cranial nerves are grossly intact. Deep tendon reflexes are symmetrical and equal in all four extremities. Psychiatric: The patient has an appropriate affect and does not exhibit any anxiety or depression. Triage Information Reviewed: Yes Vital Signs On Initial Exam: Initial Vitals Temp Pulse Resp BP Pulse Ox 97.1 F 105 19 152/122 99 05/16/19 11:42 05/16/19 11:42 05/16/19 11:42 05/16/19 11:42 05/16/19 11:42 Vital Signs Reviewed: Yes Procedures - Sedation Patient Received Moderate/Deep Sedation with Procedure: No Diagnostics - Vital Signs Vital Signs Temp Pulse Resp BP Pulse Ox 05/16/19 11:42 97.1 F 105 19 152/122 99 - Laboratory Lab Statement: Any lab studies that have been ordered have been reviewed, and results considered in the medical decision making process. GIGU Course/Dx - Course Course Of Treatment: Mr. Huitron was given by mouth Zofran here for his nausea. His symptoms are mild and I do not think he needs to have any more invasive treatment. I recommended Zofran at home for continued nausea. - Diagnoses Provider Diagnoses: Gastroenteritis Discharge ED - Sign-Out/Discharge Documenting (check all that apply): Patient Departure - discharge - Discharge Plan Condition: Stable Disposition: HOME Prescriptions: Ondansetron ODT TAB* [Zofran Odt TAB*] 4 mg PO Q6H PRN #20 tab.odt PRN Reason: Nausea/Vomiting Patient Education Materials: Gastroenteritis (ED) Referrals: Ryland Mtz MD [Primary Care Provider] - 3 Days Additional Instructions: Please follow up with your primary care provider in 2-3 days. Return to the Emergency Department with new or worsening symptoms. - Billing Disposition and Condition Condition: STABLE Disposition: Home - Attestation Statements Document Initiated by Scribe: Yes Documenting Scribe: Albert Cabrales Provider For Whom Cristian is Documenting (Include Credential): Jony Guillermo MD Scribe Attestation: IAlbert, scribed for Jony Guillermo MD on 05/16/19 at 1656. Scribe Documentation Reviewed: Yes Provider Attestation: The documentation as recorded by the Albert benavidez accurately reflects the service I personally performed and the decisions made by me, Jony Guillermo MD Status of Scribe Document: Viewed
[2019-05-16] MEDS ORDERED: clonazePAM TAB(*) 1 MG PO ONE (14:16)
[2019-05-16 14:25] VITALS: BP 128/77
== END 2019-05-16 14:25 | disposition home or self-care (01) ==
LOC: ED 11:39
DX: K52.9 Noninfective gastroenteritis and colitis, unspecified (principal); R20.0 Anesthesia of skin; F41.9 Anxiety disorder, unspecified; Z88.5 Allergy status to narcotic agent
CPT/HCPCS: 99282; A9270-GY

== ENCOUNTER 2019-06-09 13:25 | Emergency (ER) | payer OTHER ==
--- OUTSIDE RECORDS SUMMARY | 2019-06-09 13:36 | XMS REPORT | Continuity of Care Document ---
:1990 External Reference #:[id number] Author Name TYSON Collins Address [address] [place] [address] Care Team Providers Name Role Phone Kira Lopez M.D. 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 Onset: 05/30/2016 Social History Type Date Description Comments Sex Unknown Tobacco Use Start: Unknown Nonsmoker ETOH Use beer on weekends 3 -6 beers Fri/sat Recreational Drug Use Denies Drug Use Tobacco Use Start: Unknown Nonsmoker Smoking Status Reviewed: 05/23/19 Nonsmoker Allergies, Adverse Reactions, Alerts Active Allergies Reaction Severity Comments Date Hydrocodone feels off 10/12/2018 Inactive Allergies NKDA 08/15/2011 Medications Active Medications SIG Qnty Indications Ordering Provider Date Lexapro Start 2 tablet 30tabs F41.9 Kira Lopez, 05/23/2019 10mg Tablets at bedtime. M.D. Adderall take one by 30tabs F90.0 Kira Lopez, 10/12/2018 10mg Tablets mouth daily prn M.D. Clonazepam 1 by mouth once 30tabs F41.9 Alejandra Mcgraw 01/30/2016 0.5mg Tablets a day as needed SIA Murray for anxiety Escitalopram Oxalate 1 by mouth every F41.9 Unknown 10mg day Tablets Immunizations CPT Code Status Date Vaccine Lot # [id number] Given 05/03/2019 Tdap Tetanus, W Pertussis [id number] Vital Signs Date Vital Result Comment 05/23/2019 3:42pm BP Systolic 144 mmHg BP Diastolic 88 mmHg Heart Rate 70 /min Body Temperature 98.4 F Height 70.5 inches 5'10.50" Weight 186.00 lb BMI (Body Mass Index) 26.3 kg/m2 05/03/2019 3:25pm BP Systolic 124 mmHg BP Diastolic 84 mmHg Heart Rate 80 /min Body Temperature 98.4 F Results Test Acquired Date Facility Test Result H/L Range Note CBC Auto Diff 05/14/2019 [facility] [place] White Blood 8.2 10^3/uL Normal 3.5-10.8 Count Red Blood Count 4.78 10^6/uL Normal 4.18-5.48 Hemoglobin 15.4 g/dL Normal 14.0-18.0 Hematocrit 44 % Normal 42-52 Mean Corpuscular Volume 91 fL Normal 80-94 Mean Corpuscular Hemoglobin 32 pg High 27-31 Mean Corpuscular HGB Conc 35 g/dL Normal 31-36 Red Cell Distribution Width 13 % Normal 10-15 Platelet Count 319 10^3/uL Normal 150-450 Mean Platelet Volume 7.8 fL Normal 7.4-10.4 Abs Neutrophils 6.1 10^3/uL Normal 1.5-7.7 Abs Lymphocytes 1.2 10^3/uL Normal 1.0-4.8 Abs Monocytes 0.7 10^3/uL Normal 0-0.8 Abs Eosinophils 0.0 10^3/uL Normal 0-0.6 Abs Basophils 0.1 10^3/uL Normal 0-0.2 Abs Nucleated RBC 0.0 10^3/uL Granulocyte % 74.3 % Lymphocyte % 14.9 % Monocyte % 9.0 % Eosinophil % 0.6 % Basophil % 1.2 % Nucleated Red Blood Cells % 0.0 Comp Metabolic Panel 05/14/2019 [facility] [place] Sodium 133 mmol/L Low 135-145 Potassium 3.1 mmol/L Low 3.5-5.0 Chloride 99 mmol/L Low 101-111 Co2 Carbon Dioxide 25 mmol/L Normal 22-32 Anion Gap 9 mmol/L Normal 2-11 Calcium 9.2 mg/dL Normal 8.6-10.3 Albumin 4.7 g/dL Normal 3.2-5.2 Total Bilirubin 0.30 mg/dL Normal 0.2-1.0 Glucose 132 mg/dL High 70-100 Blood Urea Nitrogen 10 mg/dL Normal 6-24 Creatinine 0.88 mg/dL Normal 0.67-1.17 BUN/Creatinine Ratio 11.4 Normal 8-20 Total Protein 7.8 g/dL Normal 6.4-8.9 Globulin 3.1 g/dL Normal 2-4 Albumin/Globulin Ratio 1.5 Normal 1-3 Alkaline Phosphatase 83 U/L Normal 34-104 Alt 25 U/L Normal 7-52 Ast 25 U/L Normal 13-39 Egfr Non- 102.4 >60 Egfr 123.9 >60 1 Laboratory test finding 05/14/2019 [facility] Alcohol 23 mg/dL High <10 1 Because ethnic data is not always readily available, this report includes an eGFR for both -Americans and non- Americans. The National Kidney Disease Education Program (NKDEP) does not endorse the use of the MDRD equation for patients that are not between the ages of 18 and 70, are , have extremes of body size, muscle mass, or nutritional status, or are non- or non-. According to the National Kidney Foundation, irrespective of diagnosis, the stage of the disease is based on the level of kidney function: Stage Description GFR(mL/min/1.73 m(2)) 1 Kidney damage with normal or decreased GFR 90 2 Kidney damage with mild decrease in GFR 60-89 3 Moderate decrease in GFR 30-59 4 Severe decrease in GFR 15-29 5 Kidney failure <15 (or dialysis) Procedures Description No Information Available Medical Devices Description No Information Available Encounters Type Date Location Provider Dx Diagnosis Office Visit 03/11/2019 [facility] Office Alejandra Mcgraw F41.9 Anxiety disorder, 4:15p SIA Murray unspecified R03.0 Elevated blood-pressure reading, w/o diagnosis of htn R07.1 Chest pain on breathing Assessments Date Code Description Provider 05/23/2019 F41.9 Anxiety disorder, unspecified TYSON Collins 05/23/2019 R11.0 Nausea TYSON Collins 05/03/2019 Z23 Encounter for immunization Kria Lopez M.D. 03/11/2019 F41.9 Anxiety disorder, unspecified Alejandra Murray NP 03/11/2019 R03.0 Elevated blood-pressure reading, without Alejandra Murray NP diagnosis of hypertension 03/11/2019 R07.1 Chest pain on breathing Alejandra Murray NP Plan of Treatment Future Appointment(s):06/06/2019 3:45 pm - TYSON Collins at [facility] Armhru5110/19/2019 10:40 am - Kira Lopez M.D. at [facility] Rpnnoz9505/23/2019 - Criss Esteves, PAF41.9 Anxiety disorder, unspecifiedNew Medication:Lexapro 10 mg - Start 2 tablet at bedtime.Comments:Increase Lexapro to 20 mg nightly before bed. Continue Klonopin 0.5 as needed Stop alcohol. Switch to Kombucha or other relaxing drinks when you get home. Start exercising. Deep breathing, meditation in the morning. Follow up in 2 ozdcbR19.0 NauseaComments:Check labs today Check CT of the AbdomenAllComments:PCMHMedication Management Patient Understands medications he's taking? Yes Are there Barriers to Adherence? No Has the patient been asked about herbal supplements and therapies, and OTC meds? Yes Care Plan1. Patient has been queried about patient's goals/preferences and functional/lifestyle goals at relevant visits. Yes If relevant, describe: N/A2. Treatment goals as explained to the patient: above3. Are there barriers to meeting treatment goals? No If Yes , please describe:4. Self-Management goals as described to the patient: Yes As always, we strongly encourage a healthy diet and making physical activity a part of your every day life. If you have questions about how or where to start, please contact the office. Functional Status Description No Information Available Mental Status Description No Information Available Referrals Description No Information Available
--- OUTSIDE RECORDS SUMMARY | 2019-06-09 13:36 | XMS REPORT | Continuity of Care Document ---
:1990 External Reference #:[id number] Author Name Kira Lopez M.D. Address [address] [place] [address] Care Team Providers Name Role Phone Kira Lopez M.D. 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 Capsules Adderall take one by mouth 30tabs F90.0 Kira Lopez, 10/12/2018 10mg Tablets daily prn M.D. Clonazepam 1 by mouth once a 30tabs F41.9 Kira Lopez, 01/30/2016 0.5mg day as needed for M.D. Tablets anxiety History Medications Lexapro Start 2 tablet at 30tabs F41.9 Kira Lopez, 05/23/2019 - 10mg bedtime. M.D. 06/04/2019 Tablets Immunizations CPT Code Status Date Vaccine Lot # [id number] Given 05/03/2019 Tdap Tetanus, W Pertussis [id number] Vital Signs Date Vital Result Comment 06/04/2019 9:24am BP Systolic 128 mmHg BP Diastolic 60 mmHg Heart Rate 78 /min Body Temperature 98.4 F Respiratory Rate 16 /min Height 70.5 inches 5'10.50" Weight 181.50 lb BMI (Body Mass Index) 25.7 kg/m2 05/23/2019 3:42pm BP Systolic 144 mmHg BP Diastolic 88 mmHg Heart Rate 70 /min Body Temperature 98.4 F Height 70.5 inches 5'10.50" Weight 186.00 lb BMI (Body Mass Index) 26.3 kg/m2 Results Test Acquired Date Facility Test Result H/L Range Note CBC Electronic a 05/23/2019 Hayden Michelle([facility]) WBC 7.7 x10^3/UL 4.0- 10.0 RBC 4.67 x10^6/UL 3.93-6.00 HGB 15.0 g/dL 12.0-17.0 HCT 44 % 35-50 MCV 93.4 fL 80.0-95.0 MCH 32.1 pg 25.6-32.2 MCHC 34.4 g/dL 32.2-36.0 RDW-CV 12.0 % 11.6-14.4 PLT 312 x10^3/UL 163-400 MPV 9.4 fL 9.4-12.4 Tran# 4.43 x10^3/UL 1.56-6.13 Lymph# 2.25 x10^3/UL 1.18-3.74 Hamilton# 0.82 x10^3/UL 0.24-0.82 Eos # 0.1 x10^3/UL 0.0-0.5 Baso # 0.04 x10^3/UL 0.01-0.08 Tran% 57.5 % 34.0-70.0 Lymph % 29.2 % 20.0-52.0 Hamilton% 11.3 % 5.0-12.0 Eos% 1.4 % 0.7-7.0 Baso% 0.5 % 0.1-1.2 Comprehensive Metabolic 05/23/2019 Hayden Michelle([facility]) Sodium 135 mEq/L 134-149 Prof Potassium 3.9 mEq/L 3.6-5.5 Chloride 98 mEq/L 94-112 Carbon Dioxide 28 mEq/L 21-32 Glucose 98 mg/dL 70-105 BUN 12 mg/dL 6-26 Creatinine 0.8 mg/dL 0.6-1.4 BUN/Creat Ratio 15.0 CALC 8.0-36.0 Calcium 10.1 mg/dL 8.9-10.6 Total Protein 7.7 g/dL 6.4-8.3 Albumin 4.9 g/dL 3.8-5.5 Globulin 2.8 g/dL 2.0-4.8 A/G Ratio 1.8 CALC 0.6-2.3 Alk. Phosphatase 70 U/L 22-95 Alt (SGPT) 20 U/L 7-35 Ast (Sgot) 21 U/L 5-34 Total Bilirubin 0.5 mg/dL 0.2-1.3 GFR Non- >60 ml/min/1.73m^ >=60 GFR >60 ml/min/1.73m^ >=60 CBC Auto [place] [facility] [place] Count 8.2 10^3/uL Normal 3.5- 10.8 Red Blood Count 4.78 10^6/uL Normal 4.18-5.48 [...] Cells % 0.0 Comp Metabolic Panel 05/14/2019 [facility] [place]odium 133 mmol/L Low 135-145 Potassium 3.1 [...] Date Location Provider Dx Diagnosis Office Visit 05/23/2019 [facility] Office Criss Esteves, F41.9 Anxiety disorder, 3:45p PA unspecified R11.0 Nausea Office Visit 03/11/2019 4:15p [facility] Office Alejandra Mcgraw 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 06/04/2019 Q61.9 Cystic kidney disease, unspecified Kira Lopez M.D. 05/23/2019 F41.9 Anxiety disorder, unspecified TYSON Collins 05/23/2019 R11.0 Nausea TYSON Collins 05/03/2019 Z23 Encounter for immunization Kira Lopez M.D. 03/11/2019 F41.9 Anxiety disorder, unspecified Alejandra Murray, SIA 03/11/2019 R03.0 Elevated blood-pressure reading, without Alejandra Murray NP diagnosis of hypertension 03/11/2019 R07.1 Chest pain on breathing Alejandra Murray NP Plan of Treatment Future Appointment(s):07/05/2019 4:30 pm - Kira Lopez M.D. at [facility] Ynxcbd6010/19/2019 10:40 am - Kira Lopez M.D. at [facility] Ifbaxo8406/04/2019 - Kira Lopez M.D.F41.9 Anxiety disorder, unspecifiedNew Medication:Fluoxetine HCL 10 mg - 1 by mouth every dayComments:Reviewed adverse side effects of medication. Advised to call the office if experiencing symptoms. Patient verbalized understanding. Take medication for at least one week as it can take 1 week to build tolerance to side effects of medication. 4-6 weeks for full medication effect. Take medication daily,consider therapy if not already started. Call office right away if symptoms worsen including worsening mood/ anxiety or suicidal ideation. Suicide prevention hot line/Crisis line: [phone] -0993 or 594-379-1241Kwmayhgjh 24 hours a day, 7 days a week . It is free and confidential. https://suicidepreventionlifeline.org/ Follow up in 4-6 weeks or sooner if concerns ariseFollow up:1moQ61.9 Cystic kidney disease, unspecifiedNew Xrays:Ultrasound Retroperitoneal Limited, Ordered: Comments:check ultrasoundAllComments:Medication Management Patient Understands medications he's taking? Yes No Are there Barriersto Adherence? Yes No Has the patient been asked about herbal supplements and therapies, and OTC meds? Yes No Functional Status Description No Information Available Mental Status Description No Information Available Referrals Description No Information Available
--- NOTE | 2019-06-09 15:02 | ED ---
Complex/Multi-Sys Presentation - HPI Summary HPI Summary: Pt. is a 28 y.o male who presents to the ER for complaints of anxiety, chest pain, shortness, facial and bilateral arm tingling. Pt. notes these symptoms have been intermittent over the last few weeks. Pt. has been following with his PCP. He had a brain MRI last week which was normal. Pt. denies recent illness, fever, cough. Sxs are moderate in severity. Denies drug or ETOH use. Pt. notes family hx of MS and parkinson's disease. - History Of Current Complaint Chief Complaint: EDGeneral Time Seen by Provider: 06/09/19 14:50 Hx Obtained From: Patient - Allergies/Home Medications Allergies/Adverse Reactions: Allergies Allergy/AdvReac Type Severity Reaction Status Date / Time hydrocodone Allergy Nausea And Verified 06/09/19 13:26 Vomiting Home Medications: Home Medications Cider Vinegar [Apple Cider Vinegar] 300 mg PO DAILY 06/09/19 [History Confirmed 06/09/19] Multivitamins/Minerals TAB* [Theragran/minerals TAB*] 1 tab PO DAILY 06/09/19 [ History Confirmed 06/09/19] clonazePAM TAB(*) [KlonoPIN TAB(*)] 0.5 mg PO DAILY PRN 06/09/19 [History Confirmed 06/09/19] PMH/Surg Hx/FS Hx/Imm Hx Previously Healthy: Yes Endocrine/Hematology History: Denies: Hx Diabetes, Hx Thyroid Disease Cardiovascular History: Denies: Hx Hypertension, Hx Pacemaker/ICD Respiratory History: Denies: Hx Asthma, Hx Chronic Obstructive Pulmonary Disease (COPD) GI History: Denies: Hx Ulcer History: Denies: Hx Dialysis, Hx Renal Disease Musculoskeletal History: Reports: Other Musculoskeletal History - HX OF FX RIGHT ARM, RIGHT KNEE ARTHROSCOPY, MCL REPAIR Sensory History: Denies: Hx Contacts or Glasses, Hx Hearing Aid Opthamlomology History: Denies: Hx Contacts or Glasses Psychiatric History: Reports: Hx Anxiety, Hx Depression - DEPRESSION- EPISODE OF 7-8 YRS AGO Denies: Hx Panic Disorder - Surgical History Surgery Procedure, Year, and Place: RIGHT ARM FX- AGE 7- "[facility]". RIGHT KNEE ARTHROSCOPY, MCL REPAIR- 2012- [facility] [place] Hx Anesthesia Reactions: No Infectious Disease History: No Infectious Disease History: Denies: Hx Hepatitis, Hx Human Immunodeficiency Virus (HIV), History Other Infectious Disease, Traveled Outside the [place] in Last 30 Days - Family History Known Family History: Positive: None, Non-Contributory Negative: Blood Disorder - Social History Occupation: Employed Full-time Lives: With Family Alcohol Use: Weekly Alcohol Amount: 2 BEERS/NIGHT, SOCIALLY ON WEEKENDS Hx Substance Use: No Substance Use Type: Reports: None Hx Tobacco Use: No Smoking Status (MU): Never Smoked Tobacco Have You Smoked in the Last Year: No Review of Systems Constitutional: Negative Negative: Fever Positive: Blurred Vision ENT: Negative Positive: Chest Pain Positive: Shortness Of Breath. Negative: Cough Gastrointestinal: Negative Negative: Abdominal Pain, Vomiting, Diarrhea Genitourinary: Negative Musculoskeletal: Negative Skin: Negative Negative: Rash Neurological/Mental Status: Negative Positive: Anxious All Other Systems Reviewed And Are Negative: Yes Physical Exam Triage Information Reviewed: Yes Vital Signs On Initial Exam: Initial Vitals Temp Pulse Resp BP Pulse Ox 97.8 F 88 16 164/106 100 06/09/19 13:25 06/09/19 13:25 06/09/19 13:25 06/09/19 13:25 06/09/19 13:25 Vital Signs Reviewed: Yes Appearance: Positive: Well-Nourished - Pt. sitting up in bed, very anxious. UEs shaking. Skin: Positive: Warm, Dry Head/Face: Positive: Normal Head/Face Inspection Eyes: Positive: Normal, EOMI, ALINE Neck: Positive: Supple Respiratory/Lung Sounds: Positive: Clear to Auscultation, Breath Sounds Present. Negative: Rales, Rhonchi, Wheezes Cardiovascular: Positive: Normal, RRR. Negative: Murmur Neurological: Positive: Normal, Sensory/Motor Intact, Alert, Oriented to Person Place, Time, CN Intact II-III, Normal Gait, Finger to Nose - normal, Facial Symmetry, Speech Normal. Negative: Slurred Speech Psychiatric: Positive: Affect/Mood Appropriate Procedures - Sedation Patient Received Moderate/Deep Sedation with Procedure: No Diagnostics - Vital Signs Vital Signs Temp Pulse Resp BP Pulse Ox 06/09/19 13:25 97.8 F 88 16 164/106 100 - Laboratory Result Diagrams: 06/09/19 15:22 06/09/19 15:22 Lab Statement: Any lab studies that have been ordered have been reviewed, and results considered in the medical decision making process. Complex Multi-Symp Course/Dx Course Of Treatment: Pt. presenting with above complaints. He is very anxious and repeats "something is wrong with me!" Placed on monitor. Will obtain labs and ecg, and cxr. Ativan ordered for anxiety. ECG done at 1502 shows a sinus rhythm of 73bpm, normal axis, appropriate intervals, no STEMI. Labs unremarkable. On re-exam pt. is resting more comfortably. Results discussed. Will dc pt. home. Advised to call pcp tomorrow for close f.u and possible referral to neurology. Pt. will return to er if sxs change or worsen. Pt. understands and agrees with plan. - Diagnoses Provider Diagnoses: Anxiety, Atypical chest pain, Paresthesia Discharge ED - Sign-Out/Discharge Documenting (check all that apply): Patient Departure - Discharge Plan Condition: Improved Disposition: HOME Patient Education Materials: Chest Pain (ED), Anxiety (ED) Referrals: Ryland Mtz MD [Primary Care Provider] - Additional Instructions: Please call PCP tomorrow to schedule an appointment within 2-3 days for recheck Continue home medications as directed Return to ER if symptoms change or worsen - Billing Disposition and Condition Condition: IMPROVED Disposition: Home - Attestation Statements Provider Attestation: I was available for consult. This patient was seen by the BERT. The patient was not presented to, seen by, or examined by me. Lawson Melara MD
[2019-06-09] MEDS ORDERED: LORazepam TAB(*) 1 MG PO ONE (15:03)
[2019-06-09 15:38] LABS: ABS Lymphocytes 1.2 10^3/ul (1.0-4.8); ABS Monocytes 0.8 10^3/ul (0-0.8); ABS Neutrophils 6.9 10^3/ul (1.5-7.7); Eosinophil % 0.3 %; Hematocrit 45 % (42-52); Hemoglobin 15.5 g/dL (14.0-18.0); Lymphocyte % 13.2 %; Mean Corpuscular HGB Conc 34 g/dL (31-36); Mean Corpuscular Hemoglobin 32 pg (27-31); Mean Corpuscular Volume 92 fL (80-94); Mean Platelet Volume 8.1 fL (7.4-10.4); Platelet Count 301 10^3/uL (150-450); Red Cell Distribution Width 13 % (10-15); White Blood Count 8.9 10^3/uL (3.5-10.8)
[2019-06-09 15:54] LABS: Albumin 4.5 g/dL (3.2-5.2); Albumin/Globulin Ratio 1.6 (1-3); BUN/Creatinine Ratio 13.6 (8-20); Calcium 9.8 mg/dL (8.6-10.3); EGFR African American 123.9 (>60); EGFR Non-African American 102.4 (>60); Globulin 2.8 g/dL (2-4); Potassium 3.7 mmol/L (3.5-5.0); Total Bilirubin 0.5 mg/dL (0.2-1.0); Total Protein 7.3 g/dL (6.4-8.9)
[2019-06-09 16:20] LABS: TSH (Thyroid Stimulating Horm) 2.6 mcIU/mL (0.34-5.60)
[2019-06-09 17:40] VITALS: BP 148/74
== END 2019-06-09 17:30 | disposition home or self-care (01) ==
LOC: ED 13:25
DX: R07.89 Other chest pain (principal); F41.9 Anxiety disorder, unspecified; R20.2 Paresthesia of skin; Z79.899 Other long term (current) drug therapy; F32.9 Major depressive disorder, single episode, unspecified; H53.8 Other visual disturbances
CPT/HCPCS: 36415; 71045; 80053; 84443; 84484; 85025; 93005; 99283; A9270-GY

== ENCOUNTER 2019-06-17 11:57 | Emergency (ER) | payer OTHER ==
--- OUTSIDE RECORDS SUMMARY | 2019-06-17 12:17 | XMS REPORT | Continuity of Care Document ---
:1990 External Reference #:[id number] Author Name TYSON Collins Address [address] [place] [address] Care Team Providers Name Role Phone Kira Lopez M.D. - Family Medicine Care Team Information Eyewear Consultant [phone] Problems Active Problems Provider Date Anxiety state Kira Lopez M.D. Onset: 05/30/2016 Social History Type Date Description Comments Sex Unknown Tobacco Use Start: Unknown Nonsmoker ETOH Use beer on weekends 3 -6 beers Fri/sat Recreational Drug Use Denies Drug Use Tobacco Use Start: Unknown Nonsmoker Smoking Status Reviewed: 06/15/19 Nonsmoker Allergies, Adverse Reactions, Alerts Active Allergies Reaction Severity Comments Date Hydrocodone feels off 10/12/2018 Inactive Allergies NKDA 08/15/2011 Medications Active Medications SIG Qnty Indications Ordering Date Provider Lorazepam 1-2 tablet twice a 14tabs F41.9 Elaine Shayy 06/10/2019 0.5mg day as needed for SIA Hardy Tablets anxiety - do not take with the clonazepam Fluoxetine HCL 1 by mouth every 30caps [...] CPT Code Status Date Vaccine Lot # [id number] Given 05/03/2019 Tdap Tetanus, W Pertussis [id number] Vital Signs Date Vital Result Comment 06/10/2019 4:08pm BP Systolic 146 mmHg BP Diastolic 104 mmHg BP Systolic Recheck 138 mmHg right arm TREASURY ASSISTANT recheck BP Diastolic Recheck 88 mmHg right arm TREASURY ASSISTANT recheck Heart Rate 66 /min Body Temperature 98.0 F Respiratory Rate 18 /min Weight 185.00 lb 06/04/2019 9:24am BP Systolic 128 mmHg BP Diastolic 60 mmHg Heart Rate 78 /min Body Temperature 98.4 F Respiratory Rate 16 /min Height 70.5 inches 5'10.50" Weight 181.50 lb BMI (Body Mass Index) 25.7 kg/m2 Results Test Acquired Date Facility Test Result H/L Range Note CBC Auto [place] 06/09/2019 [facility] [place] Blood 8.9 10^3/uL Normal 3.5-10.8 Count Red Blood Count 4.90 10^6/uL Normal 4.18-5.48 Hemoglobin 15.5 g/dL Normal 14.0-18.0 Hematocrit 45 % Normal 42-52 Mean Corpuscular Volume 92 fL Normal 80-94 Mean Corpuscular Hemoglobin 32 pg High 27-31 Mean Corpuscular HGB Conc 34 g/dL Normal 31-36 Red Cell Distribution Width 13 % Normal 10-15 Platelet Count 301 10^3/uL Normal 150-450 Mean Platelet Volume 8.1 fL Normal 7.4-10.4 Abs Neutrophils 6.9 10^3/uL Normal 1.5-7.7 Abs Lymphocytes 1.2 10^3/uL Normal 1.0-4.8 Abs Monocytes 0.8 10^3/uL Normal 0-0.8 Abs Eosinophils 0.0 10^3/uL Normal 0-0.6 Abs Basophils 0.0 10^3/uL Normal 0-0.2 Abs Nucleated RBC 0.0 10^3/uL Granulocyte % 77.5 % Lymphocyte % 13.2 % Monocyte % 8.5 % Eosinophil % 0.3 % Basophil % 0.5 % Nucleated Red Blood Cells % 0.0 Comp Metabolic Panel 06/09/2019 [facility] [place]odium 138 mmol/L Normal 135-145 Potassium 3.7 mmol/L Normal 3.5-5.0 Chloride 102 mmol/L Normal 101-111 Co2 Carbon Dioxide 25 mmol/L Normal 22-32 Anion Gap 11 mmol/L Normal 2-11 Glucose 126 mg/dL High 70-100 Blood Urea Nitrogen 12 mg/dL Normal 6-24 Creatinine 0.88 mg/dL Normal 0.67-1.17 BUN/Creatinine Ratio 13.6 Normal 8-20 Calcium 9.8 mg/dL Normal 8.6-10.3 Total Protein 7.3 g/dL Normal 6.4-8.9 Albumin 4.5 g/dL Normal 3.2-5.2 Globulin 2.8 g/dL Normal 2-4 Albumin/Globulin Ratio 1.6 Normal 1-3 Total Bilirubin 0.50 mg/dL Normal 0.2-1.0 Alkaline Phosphatase 65 U/L Normal 34-104 Alt 18 U/L Normal 7-52 Ast 20 U/L Normal 13-39 Egfr Non- 102.4 >60 Egfr 123.9 >60 1 Laboratory test finding 06/09/2019 [facility] [place] Troponin-I (TnI) 0.00 ng/mL < 0.03 2 TSH (Thyroid Stim Horm) 2.60 mcIU/mL Normal 0.34-5.60 CBC Electronic Fma 05/23/2019 [facility] Michelle([facility]) WBC 7.7 x10^3/UL 4.0- 10.0 RBC 4.67 x10^6/UL 3.93-6.00 HGB 15.0 g/dL 12.0-17.0 HCT 44 % 35-50 MCV 93.4 fL 80.0-95.0 MCH 32.1 pg 25.6-32.2 MCHC 34.4 g/dL 32.2-36.0 RDW-CV 12.0 % 11.6-14.4 PLT 312 x10^3/UL 163-400 MPV 9.4 fL 9.4-12.4 Tran# 4.43 x10^3/UL 1.56-6.13 Lymph# 2.25 x10^3/UL 1.18-3.74 Jones# 0.82 x10^3/UL 0.24-0.82 Eos # 0.1 x10^3/UL 0.0-0.5 Baso # 0.04 x10^3/UL 0.01-0.08 Tran% 57.5 % 34.0-70.0 Lymph % 29.2 % 20.0-52.0 Jones% 11.3 % 5.0-12.0 Eos% 1.4 % 0.7-7.0 Baso% 0.5 % 0.1-1.2 Comprehensive Metabolic 05/23/2019 [facility]) Sodium 135 mEq/L 134-149 Prof Potassium 3.9 [...] >60 ml/min/1.73m^ >=60 CBC Auto Diff 05/14/2019 [facility] [place] Blood Count 8.2 10^3/uL Normal 3.5- [...] Cells % 0.0 Comp Metabolic Panel 05/14/2019 [facility] Sodium 133 mmol/L Low 135-145 Potassium 3.1 [...] Egfr Non- 102.4 >60 Egfr 123.9 >60 3 Laboratory test finding 05/14/2019 [facility] Alcohol 23 [...] 15-29 5 Kidney failure <15 (or dialysis) 2 Troponin-I testing on Plasma Separator Tubes (PST) has a known false positive rate of 0.20-0.40%. All positive troponins reflex immediately to secondary confirmatory testing. Using the [employer] DxI 800 Access Immunoassay systems, the 99th percentile upper reference limit was demonstrated to be < 0.03 ng/mL. 3 Because ethnic data is not always readily [...] Date Location Provider Dx Diagnosis Office Visit 06/10/2019 [facility] Office Elaine Shayy Hardy, R53.83 Other fatigue 4:15p TREASURY ASSISTANT F41.9 Anxiety disorder, unspecified Q61.9 Cystic kidney disease, unspecified R03.0 Elevated blood-pressure reading, w/o diagnosis of htn Office Visit 06/04/2019 9:20a [facility] Office Kira Lopez F41.9 Anxiety disorder, M.D. unspecified Q61.9 Cystic kidney disease, unspecified Office Visit 05/23/2019 3:45p [facility] Criss Livingston F41.9 Anxiety disorder, TYSON Esteves unspecified R11.0 Nausea Office Visit 03/11/2019 4:15p [facility] Alejandra Mcgraw F41.9 Anxiety disorder, SIA Murray unspecified R03.0 Elevated blood-pressure reading, w/o diagnosis of htn R07.1 Chest pain on breathing Assessments Date Code Description Provider 06/15/2019 R53.83 Other fatigue TYSON Collins 06/15/2019 F41.9 Anxiety disorder, unspecified TYSON Collins 06/10/2019 R53.83 Other fatigue Elaine Hardy, SIA 06/10/2019 F41.9 Anxiety disorder, unspecified Elaine Hardy, TREASURY ASSISTANT 06/10/2019 Q61.9 Cystic kidney disease, unspecified Elaine Hardy, TREASURY ASSISTANT 06/10/2019 R03.0 Elevated blood-pressure reading, without Elaine Hardy NP diagnosis of hypertension 06/04/2019 F41.9 Anxiety disorder, unspecified Kira Loepz M.D. 06/04/2019 Q61.9 Cystic kidney disease, unspecified [...] 4:30 pm - Kira Lopez M.D. at [facility] Ywhtmd3810/19/2019 10:40 am - Kira Lopez M.D. at [facility] Umotzx2606/15/2019 - Criss Esteves, PAR53.83 Other pecpmodU83.9 Anxiety disorder, unspecifiedComments:Change Prozac to take at night Klonopin as you need No alcohol , no coffee, stimulants Deep breathing - inhale, hold, exhale repeat for a while until you can actually feel your tension releaseFollow upas scheduledAllComments:PCMHMedication Management Patient Understands medications he's taking? Yes [...] barriers to meeting treatment goals? No If Yes, please describe:4. Self-Management goals as described to [...]
--- OUTSIDE RECORDS SUMMARY | 2019-06-17 12:17 | XMS REPORT | Continuity of Care Document ---
:1990 External Reference #:[id number] Author Name Elaine Hardy NP Address [address] [place] [address] Care Team Providers Name Role Phone Kira Lopez M.D. - Family Medicine Care Team Information Surgery Consultant Problems Active Problems Provider Date Anxiety state Kira Lopez M.D. Onset: 05/30/2016 Social History Type Date Description Comments Sex Unknown Tobacco Use Start: Unknown Nonsmoker ETOH Use beer on weekends 3 -6 beers Fri/sat Recreational Drug Use Denies Drug Use Tobacco Use Start: Unknown Nonsmoker Smoking Status Reviewed: 06/10/19 Nonsmoker Allergies, Adverse Reactions, Alerts Active Allergies Reaction Severity Comments Date Hydrocodone feels off 10/12/2018 Inactive Allergies NKDA 08/15/2011 Medications Active Medications SIG Qnty Indications Ordering Date Provider Lorazepam 1-2 tablet twice a 14tabs F41.9 Elaine Lucas 06/10/2019 0.5mg day as needed for SIA [...] CPT Code Status Date Vaccine Lot # [id number] Given 05/03/2019 Tdap Tetanus, W Pertussis [id number] Vital Signs Date Vital Result Comment 06/10/2019 4:08pm BP Systolic 146 mmHg BP Diastolic 104 mmHg BP Systolic Recheck 138 mmHg right arm [employer] recheck BP Diastolic Recheck 88 mmHg right arm [employer] recheck Heart Rate 66 /min Body Temperature [...] H/L Range Note CBC Auto Diff 06/09/2019 [facility] [place] White Blood 8.9 10^3/uL Normal 3.5-10.8 Count [...] Cells % 0.0 Comp Metabolic Panel 06/09/2019 [facility] [place] Sodium 138 mmol/L Normal 135-145 Potassium 3.7 [...] 123.9 >60 1 Laboratory test finding 06/09/2019 [facility] Troponin-I (TnI) 0.00 ng/mL < 0.03 2 [...] 4.43 x10^3/UL 1.56-6.13 Lymph# 2.25 x10^3/UL 1.18-3.74 Laurel# 0.82 x10^3/UL 0.24-0.82 Eos # 0.1 x10^3/UL 0.0-0.5 Baso # 0.04 x10^3/UL 0.01-0.08 Tran% 57.5 % 34.0-70.0 Lymph % 29.2 % 20.0-52.0 Laurel% 11.3 % 5.0-12.0 Eos% 1.4 % 0.7-7.0 [...] >60 ml/min/1.73m^ >=60 CBC Auto Diff 05/14/2019 [facility] White Blood Count 8.2 10^3/uL Normal 3.5- [...] immediately to secondary confirmatory testing. Using the [employer] DxI 800 Access Immunoassay systems, the 99th [...] Date Location Provider Dx Diagnosis Office Visit 06/04/2019 Main Office Kira Lopez M.D. F41.9 Anxiety disorder, 9:20a unspecified Q61.9 Cystic kidney disease, unspecified Office Visit 05/23/2019 3:45p [facility] Criss Livingston F41.9 Anxiety disorder, TYSON Esteves unspecified R11.0 Nausea Office Visit 03/11/2019 4:15p [facility] Office Alejandra Mcgraw F41.9 Anxiety disorder, SIA Murray unspecified R03.0 Elevated blood-pressure reading, w/o diagnosis of htn R07.1 Chest pain on breathing Assessments Date Code Description Provider 06/10/2019 R53.83 Other fatigue Elaine Hardy NP 06/10/2019 F41.9 Anxiety disorder, unspecified Elaine Hardy NP 06/10/2019 Q61.9 Cystic kidney disease, unspecified Elaine Hardy NP 06/10/2019 R03.0 Elevated blood-pressure reading, without Elaine Shayy Hardy , [employer] diagnosis of hypertension 06/04/2019 F41.9 Anxiety disorder, unspecified Kira Lopez M.D. 06/04/2019 Q61.9 Cystic kidney disease, unspecified Kira Lopez M.D. 05/23/2019 F41.9 Anxiety disorder, unspecified Criss Esteves, TYSON 05/23/2019 R11.0 Nausea TYSON Collins 05/03/2019 Z23 Encounter for immunization Kira Lopez M.D. 03/11/2019 F41.9 Anxiety disorder, unspecified Alejandra Murray, SIA 03/11/2019 R03.0 Elevated blood-pressure reading, without Alejandra Murray NP diagnosis of hypertension 03/11/2019 R07.1 Chest pain on breathing Alejandra Murray NP Plan of Treatment Future Appointment(s):07/05/2019 4:30 pm - Kira Lopez M.D. at [facility] Oosvhe3310/19/2019 10:40 am - Kira Lopez M.D. at [facility] Wtjpod0806/10/2019 - Elaine Hardy, NPR53.83 Other fatigueComments:The patient was instructed to call or return to the office if there was no improvement . will check for Lyme [id number] Anxiety disorder, unspecifiedNew Medication:Lorazepam 0.5 mg - 1-2 tablet twice a day as needed for anxiety - do not take with the clonazepamComments:Prozac will take approximately 6 weeks to start seeing a significant effect. you are started on a low dose and we can work our way up from there. Ativan is to be used as an "as needed" medication for panic attacks. If you use this medication do not drink alcohol, do not drive as it may make you sleepy. Keep this medication in a safe place, it is a controlled substance. We will try this INSTEAD of theclonazepam for a few days to see if it is worth making the switch to use in the meantime as needed while the prozac works up in your system If concerning symptoms arise, please contact office. Keep follow up 07/05/[address] [facility] and going to talk therapy can get you started on the road to feeling better. It can also help you take care of your body and relationships.To help improve yourcondition:Get enough sleep.Eat healthy foods.Keep a regular daily schedule.Get out of the house every day.Exercise every day. Even a little bit of exercise, such as a 15- minute walk, can help.Stay awayfrom alcohol and street drugs.Talk with family or friends when you feel nervous or frightened.Find out about different types of group activities you can join.Q61.9 Cystic kidney disease, unspecifiedComments:US Scheduled 06/21, patient [id number] Elevated blood- pressure reading, without diagnosis of hypertensionComments:As we discussed, there are a few different options to manage high blood pressure: 1) changing your diet2) changing your activity level3) reducing your stress levelCall me or seek medical attention if you are experiencing any symptoms like chest pain, bad headache, shortness of breath. I suspect this is related to the anxiety and the episodes you are experiencingAllComments:Medication Management Patient Understands medications he 's taking? Yes No Are there Barriers to Adherence? Yes No Has the patient been asked about herbal supplements and therapies, andOTC meds? Yes No Care Plan1. Patient has been queried about patient's goals/preferences and functional/lifestyle goals at relevant visits. If relevant, describe: na2. Treatment goals as explained to the patient: above3. Are there barriers to meeting treatment goals? Yes No If Yes, please describe: disease process, polypharmacy, comorbid conditions 4. Self-Management goals as described to the patient: Yes NoAs always, we strongly encourage a healthy diet and making physical activity a part of your every day life. If you have questions about how or where to start, please contact the office. Functional Status Description No Information Available Mental Status Description No Information Available Referrals Description No Information Available
[2019-06-17 12:38] LABS: ABS Basophils 0.1 10^3/ul (0-0.2); ABS Lymphocytes 1.8 10^3/ul (1.0-4.8); ABS Monocytes 0.6 10^3/ul (0-0.8); ABS Neutrophils 3.8 10^3/ul (1.5-7.7); Eosinophil % 0.7 %; Hematocrit 43 % (42-52); Hemoglobin 15.3 g/dL (14.0-18.0); Lymphocyte % 28.1 %; Mean Corpuscular HGB Conc 35 g/dL (31-36); Mean Corpuscular Hemoglobin 33 pg (27-31); Mean Corpuscular Volume 92 fL (80-94); Mean Platelet Volume 8.2 fL (7.4-10.4); Nucleated Red Blood Cells % 0.1; Platelet Count 295 10^3/uL (150-450); Red Cell Distribution Width 13 % (10-15); White Blood Count 6.2 10^3/uL (3.5-10.8)
--- NOTE | 2019-06-17 13:02 | ED ---
HPI Chest Pain - HPI Summary HPI Summary: This pt is a 28 Y/O M presenting to [facility] with a CC of R anterior CP that began at 06/17/2019 at 3 am. The pain is intermittent and lasted for 5-10 minutes a couple of times after the first episode. The pain is currently resolved right now. He states that he was recently started on Prozac and has been lightheaded, dizzy, nausea, hot flashes, diaphoresis, CP and SOB. He states that these symptoms present during his panic attacks. He also states that during these episodes he has numbness intermittently in his legs. He also states that he has a headache and diarrhea. His PCP thinks that the panic attacks are causing the symptoms but he states that the panic attacks are always brought on when he becomes sick. Pt denies any fever, erythema of eyes, sore throat, cough, abdominal pain, vomiting, dysuria, hematuria, myalgia, edema, rash, or dizziness. He states that the Prozac he has been prescribed has been unable to help his panic attacks. He denies any pertinent PMHx. He states a FHx of heart disease and MS. He has no aggravating or alleviating factors. States pain resolved prior to arrival. He states his children have a cough without pain. - History of Current Complaint Chief Complaint: EDChestPainROMI Time Seen by Provider: 06/17/19 12:17 Hx Obtained From: Patient Onset/Duration: Started Hours Ago - 10, Resolved Time of Onset: 03:00 Timing: Intermittent, Lasting Minutes - 5-10 Initial Severity: Moderate Current Severity: None Pain Intensity: 0 Pain Scale Used: 0-10 Numeric Chest Pain Location: Right Anterior Aggravating Factor(s): Nothing Alleviating Factor(s): Nothing Associated Signs and Symptoms: Positive: Negative - erythema of eyes, sore throat, dysuria, hematuria, myalgia, edema, rash, Chest Pain, Anxiety, Headaches , Numbness - bilateral legs, Shortness of Breath, Chills, Diaphoresis, Nausea, Other: - diarrhea. Negative: Dizziness, Fever, Cough, Abdominal Pain, Vomiting - Allergy/Home Medications Allergies/Adverse Reactions: Allergies Allergy/AdvReac Type Severity Reaction Status Date / Time hydrocodone Allergy Nausea And Verified 06/09/19 13:26 Vomiting Home Medications: Home Medications Cider Vinegar [Apple Cider Vinegar] 300 mg PO DAILY 06/09/19 [History Confirmed 06/17/19] Multivitamins/Minerals TAB* [Theragran/minerals TAB*] 1 tab PO DAILY 06/09/19 [ History Confirmed 06/17/19] Cyanocobalamin TAB* [Vitamin B12 TAB*] 500 mcg PO DAILY 06/17/19 [History Confirmed 06/17/19] Magnesium Oxide TAB* [MagOx 400 TAB*] 400 mg PO DAILY 06/17/19 [History Confirmed 06/17/19] [place]-3 Fatty Acids (Nf) [Fish Oil (NF)] 1,000 mg PO DAILY 06/17/19 [History Confirmed 06/17/19] Oregano Oil [Oil of Oregano] 1,500 mg PO DAILY 06/17/19 [History Confirmed 06/16] Zinc 50 mg PO DAILY 06/17/19 [History Confirmed 06/17/19] PMH/Surg Hx/FS Hx/Imm Hx Previously Healthy: Yes Endocrine/Hematology History: Denies: Hx Diabetes, Hx Thyroid Disease Cardiovascular History: Denies: Hx Hypertension, Hx Pacemaker/ICD Respiratory History: Denies: Hx Asthma, Hx Chronic Obstructive Pulmonary Disease (COPD) GI History: Denies: Hx Ulcer History: Denies: Hx Dialysis, Hx Renal Disease Musculoskeletal History: Reports: Other Musculoskeletal History - HX OF FX RIGHT ARM, RIGHT KNEE ARTHROSCOPY, MCL REPAIR Sensory History: Denies: Hx Contacts or Glasses, Hx Hearing Aid Opthamlomology History: Denies: Hx Contacts or Glasses Psychiatric History: Reports: Hx Anxiety, Hx Depression - DEPRESSION- EPISODE OF 7-8 YRS AGO Denies: Hx Panic Disorder - Cancer History Hx Chemotherapy: No Hx Radiation Therapy: No - Surgical History Surgical History: Yes Surgery Procedure, Year, and Place: RIGHT ARM FX- AGE 7- "[facility]". RIGHT KNEE ARTHROSCOPY, [place]PA[place] [facility] [place] Anesthesia Reactions: No - Immunization History Immunizations Up to Date: Yes Infectious Disease History: No Infectious Disease History: Denies: Hx Hepatitis, Hx Human Immunodeficiency Virus (HIV), History Other Infectious Disease, Traveled Outside the [place] in Last 30 Days - Family History Known Family History: Positive: Cardiac Disease Negative: Blood Disorder - Social History Occupation: Employed Full-time Lives: With Family Alcohol Use: Weekly Alcohol Amount: 2 BEERS/NIGHT, SOCIALLY ON WEEKENDS Hx Substance Use: No Substance Use Type: Reports: None Hx Tobacco Use: No Smoking Status (MU): Never Smoked Tobacco Have You Smoked in the Last Year: No Review of Systems Positive: Chills, Skin Diaphoresis. Negative: Fever Negative: Erythema Negative: Sore Throat Positive: Chest Pain Positive: Shortness Of Breath. Negative: Cough Positive: Diarrhea, Nausea. Negative: Abdominal Pain, Vomiting Negative: dysuria, hematuria Negative: Myalgia, Edema Negative: Rash Neurological/Mental Status: Negative - dizziness All Other Systems Reviewed And Are Negative: Yes Physical Exam - Summary Physical Exam Summary: Constitutional: Well-developed, Well-nourished, Alert. (-) Distressed Skin: Warm, Dry HENT: Normocephalic; Atraumatic Eyes: Conjunctiva normal Neck: Musculoskeletal ROM normal neck. (-) JVD, (-) Stridor, (-) Tracheal deviation Cardio: Rhythm regular, rate normal, Heart sounds normal; Intact distal pulses; The pedal pulses are 2+ and symmetric. Radial pulses are 2+ and symmetric. (-) Murmur Pulmonary/Chest wall: Effort normal. (-) Respiratory distress, (-) Wheezes, (-) Rales Abd: Soft, (-) tenderness, (-) Distension, (-) Guarding, (-) Rebound Musculoskeletal: (-) Edema Lymph: (-) Cervical adenopathy Neuro: Alert, Oriented x3 Psych: Mood and affect Normal Triage Information Reviewed: Yes Vital Signs On Initial Exam: Initial Vitals Temp Pulse Resp BP Pulse Ox 98.0 F 74 16 137/85 100 06/17/19 12:04 06/17/19 12:04 06/17/19 12:04 06/17/19 12:04 06/17/19 12:04 Vital Signs Reviewed: Yes Procedures - Sedation Patient Received Moderate/Deep Sedation with Procedure: No Diagnostics - Vital Signs Vital Signs Temp Pulse Resp BP Pulse Ox 06/17/19 12:34 70 100 06/17/19 12:32 69 140/84 100 06/17/19 12:04 98.0 F 74 16 137/85 100 - Laboratory Lab Results: Lab Results 06/17/19 Range/Units 12:26 WBC 6.2 (3.5-10.8) 10^3/uL RBC 4.70 (4.18-5.48) 10^6 /uL Hgb 15.3 (14.0-18.0) g/dL Hct 43 (42-52) % MCV 92 (80-94) fL MCH 33 H (27-31) pg MCHC 35 (31-36) g/dL RDW 13 (10-15) % Plt Count 295 (150-450) 10^3/uL MPV 8.2 (7.4-10.4) fL Neut % (Auto) 60.8 % Lymph % (Auto) 28.1 % [place] % (Auto) 9.3 % Eos % (Auto) 0.7 % Baso % (Auto) 1.1 % Absolute Neuts (auto) 3.8 (1.5-7.7) 10^3/ul Absolute Lymphs (auto) 1.8 (1.0-4.8) 10^3/ul Absolute Monos (auto) 0.6 (0-0.8) 10^3/ul Absolute Eos (auto) 0.0 (0-0.6) 10^3/ul Absolute Basos (auto) 0.1 (0-0.2) 10^3/ul Absolute Nucleated RBC 0.0 10^3/ul Nucleated RBC % 0.1 Result Diagrams: 06/17/19 12:26 06/17/19 12:26 Lab Statement: Any lab studies that have been ordered have been reviewed, and results considered in the medical decision making process. - Radiology CXR Radiology Interpretation Completed By: Radiologist Summary of Radiographic Findings: NO ACTIVE CARDIOPULMONARY DISEASE. ED physician has reviewed this report. - EKG 1201 Cardiac Rate: NL - 77 BPM EKG Rhythm: Sinus Rhythm ST Segment: Normal Ectopy: None Summary of EKG Findings: Normal sinus rhythm at 77 bpm, normal SC, normal QRS, normal QTc, normal axis, normal ST, normal T-waves, normal EKG. Interpreted by Dr. Lynch at 1213 05/30/2019. Reviewed by Dr. Zamudio at 1318 06/17/2019. Re-Evaluation - Re-Evaluation First Eval Re-Evaluation Time: 15:04 Change: Unchanged Comment: Pt states that he is anxious and needs medication. Will be given Xanax. Chest Pain Course/Dx - Course Course Of Treatment: This pt is a 28 Y/O M presenting to [facility] with a CC of R anterior CP that began at 06/17/2019 at 3 am. He states that he was recently started on Prozac and has been lightheaded, dizzy, nausea, hot flashes, diaphoresis, CP and SOB. He states that these symptoms present during his panic attacks. He also states that during these episodes he has numbness intermittently in his legs. He also states that he has a headache and diarrhea. His PCP thinks that the panic attacks are causing the symptoms but he states that the panic attacks are always brought on when he becomes sick. Heart score of 0, I reviewed his medical record from bout a week ago. Symptoms are the same , likely has viral illness causing nausea and diarrhea, could have medication adverse effect from Prozac. His PE found no acute abnormalities. EKG at 1201 shows Normal sinus rhythm at 77 bpm, normal SC, normal QRS, normal QTc, normal axis, normal ST, normal T-waves, normal EKG. He has no acute abnormalities on his labratory results. Pt states that he is anxious and needs medication. Will be given Xanax. His CXR shows NO ACTIVE CARDIOPULMONARY DISEASE. notes synptoms consistent with hyperventilation syndrome. He will be discharged home with a Dx of anxiety and chest pressure. - Diagnoses Provider Diagnoses: Anxiety, Chest pressure Discharge ED - Sign-Out/Discharge Documenting (check all that apply): Patient Departure - discharge - Discharge Plan Condition: Good Disposition: HOME Patient Education Materials: Anxiety (ED), Chest Pain (ED) Referrals: Ryland Mtz MD [Primary Care Provider] - 2 Days Lauro Gardiner MD [Medical Doctor] - 2 Weeks Additional Instructions: PLEASE FOLLOW UP WITH DR. GARDINER, CARDIOLOGY, IN 2 WEEKS AND YOUR PRIMARY CARE PHYSICIAN IN 1-3 DAYS. RETURN TO THE EMERGENCY DEPARTMENT FOR ANY NEW OR WORSENING SYMPTOMS. - Attestation Statements Document Initiated by Scribe: Yes Documenting Scribe: Constantin Taylor Provider For Whom Scribe is Documenting (Include Credential): Hernandez Zamudio MD Scribe Attestation: Constantin Gusman, scribed for Hernandez Zamudio MD on 06/17/19 at 1626. Status of Scribe Document: Ready
[2019-06-17 13:18] LABS: Albumin 4.5 g/dL (3.2-5.2); Albumin/Globulin Ratio 1.5 (1-3); Calcium 9.3 mg/dL (8.6-10.3); EGFR African American 134.4 (>60); EGFR Non-African American 111.1 (>60); Potassium 3.7 mmol/L (3.5-5.0); Total Bilirubin 0.3 mg/dL (0.2-1.0); Total Protein 7.5 g/dL (6.4-8.9)
[2019-06-17] MEDS ORDERED: Ondansetron ODT TAB* 4 MG PO ONE (14:18)
[2019-06-17] MEDS ORDERED: NS 0.9% 1000 ML** 1,000 ML IV ONE (14:20)
[2019-06-17] MEDS ORDERED: LORazepam TAB(*) 1 MG PO ONE (15:02)
[2019-06-17 16:31] LABS: HIV 4th Generation Nonreactive (Nonreactive)
[2019-06-17 16:50] VITALS: BP 140/85
== END 2019-06-17 16:38 | disposition home or self-care (01) ==
LOC: ED 11:57
DX: F41.9 Anxiety disorder, unspecified (principal); R07.89 Other chest pain; Z88.6 Allergy status to analgesic agent; R06.02 Shortness of breath; R19.7 Diarrhea, unspecified; R11.0 Nausea
CPT/HCPCS: 36415; 71045; 80053; 83605; 84484; 85025; 87389; 93005; 96360; 99281; A9270-GY